=== PATIENT | female | born 1960 | race Caucasian/White ===

== ENCOUNTER 2017-07-21 17:21 | Emergency (ER) | payer BC ==
--- NOTE | 2017-07-21 17:34 | Emergency Department Record ---
History of Present Illness - General Stated Complaint: TOE INJURY Time Seen by Provider: 07/21/17 17:24 Source: Patient Mode of Arrival: Ambulatory Limitations: No limitations - History of Present Illness Initial Comments: 57 yo presents with a left great toe injury. She stubbed her toe about one week ago walking by her wood pile. She states the toe felt like it bent upward near the nail. The nail did not bleed and remained firmly intact. The toe is mildly swollen and red near the end. No pus, bleeding, or streaking. No history of DM or gout. No fevers. MD Complaint: Foot injury -: Week(s) (1) Injury: Toes: Left Type of Injury: Blunt Place: Home Severity: Moderate Improves With: Immobilization Worsens With: Movement, Palpation, Weight bearing Context: Direct blow Associated Symptoms: Swelling - Related Data Home Medications Medication Instructions Recorded Confirmed Last Taken Atorvastatin Calcium [Lipitor] 40 mg PO DAILY 07/21/17 07/21/17 07/20/17 Zolpidem Tartrate [Ambien] 10 mg PO QHS 07/21/17 07/21/17 07/20/17 Previous Rx's Medication Instructions Recorded Cephalexin [Keflex] 500 mg PO TID #21 cap 07/21/17 Hydrocodone/Acetaminophen [[place] 1 each PO Q8H #12 tablet 07/21/17 5-325 Tablet] Naproxen [Naprosyn] 500 mg PO BID #20 tablet 07/21/17 Allergies Allergy/AdvReac Type Severity Reaction Status Date / Time No Known Drug Allergies Allergy Verified 07/10/16 16:12 Review of Systems Constitutional: Denies: Chills, Fever, Malaise, Weakness Eyes: Denies: Eye discharge, Eye pain, Photophobia, Vision change ENT: Denies: Congestion, Throat pain Respiratory: Denies: Cough Cardiovascular: Denies: Chest pain, Palpitations, Syncope Endocrine: Denies: Fatigue Gastrointestinal: Denies: Abdominal pain, Diarrhea, Nausea, Vomiting Genitourinary: Denies: Dysuria, Urgency Musculoskeletal: Reports: As per HPI, Arthralgia Skin: Reports: As per HPI, Change in color, Rash Neurological: Denies: Headache, Numbness, Tingling, Vertigo, Weakness Psychiatric: Denies: Anxiety Hematological/Lymphatic: Denies: Blood Clots, Easy bleeding, Easy bruising, Swollen glands Past Medical History - SOCIAL HISTORY Smoking Status: Current every day smoker Drug Use: None - RESPIRATORY Hx Respiratory Disorders: No - CARDIOVASCULAR Hx Cardio Disorders: No Hx Hypertension: Yes - NEURO Hx Neuro Disorders: No - GI Hx GI Disorders: No - Hx Genitourinary Disorders: No - ENDOCRINE Hx Endocrine Disorders: No - MUSCULOSKELETAL Hx Musculoskeletal Disorders: No - PSYCH Hx Psych Problems: Yes Hx Anxiety: Yes Hx Depression: Yes - HEMATOLOGY/ONCOLOGY Hx Hematology/Oncology Disorders: No Family Medical History Hx Cancer: Mother Hx Diabetes: Mother Physical Exam - General General Appearance: Alert, Oriented x3, Cooperative, No acute distress Limitations: No limitations - Head Head exam: Atraumatic, Normocephalic, Normal inspection - Eye Eye exam: Normal appearance, PERRL. negative: Conjunctival injection, Periorbital swelling - ENT ENT exam: Normal exam. negative: Mucous membranes moist Ear exam: Normal external inspection Nasal Exam: Normal inspection Mouth exam: Normal external inspection - Neck Neck exam: Normal inspection - Cardiovascular Cardiovascular Exam: Regular rate, Normal rhythm, Normal heart sounds Peripheral Pulses: 2+: Dorsalis Pedis (L) - Rectal Rectal exam: Deferred - exam: Deferred - Extremities Extremities exam: Full ROM, Joint swelling, Normal capillary refill, Tenderness. negative: Normal inspection Image of Feet: 1 - mild redness and swelling of the left great toe, no fluctuance or signs of infection, no pus, the nail is firmly attached, no subungual hematoma, no streaking, the erythema is mostly isolated to the distal area - Neurological Neurological exam: Alert, Normal gait, Oriented X3 - Psychiatric Psychiatric exam: Normal affect, Normal mood - Skin Skin exam: Erythema Course - Reevaluation(s) Reevaluation #1: XR of the left great toe was ordered The toe has mild swelling and mild erythema without signs of pus or infection 07/21/17 17:36 Reevaluation #2: The XR was read as no acute process. Mild degenerative changes/ 07/21/17 18:34 Disposition Disposition: Discharge Clinical Impression: Cellulitis, toe Qualifiers: Laterality: left Qualified Code(s): L03.032 - Cellulitis of left toe Toe contusion Qualifiers: Encounter type: initial encounter Toe: lesser toe Damage to nail status: without damage Laterality: left Qualified Code(s): S90.122A - Contusion of left lesser toe(s) without damage to nail, initial encounter Disposition: Home, Self-Care Condition: (1) Good Instructions: Cellulitis (ED), Foot Contusion (ED) Additional Instructions: Keep elevated Clean daily with a warm soak Return if worse, fever, pus, swelling, pus or any new concerns Call your doctor for follow up in the next week Prescriptions: Cephalexin [Keflex] 500 mg PO TID #21 cap Hydrocodone/Acetaminophen [[place] 5-325 Tablet] 1 each PO Q8H #12 tablet Naproxen [Naprosyn] 500 mg PO BID #20 tablet Forms: Patient Portal Access Quality - Quality Measures Quality Measures: N/A - Blood Pressure Screening Does Patient Have Any of the Following: No Blood Pressure Classification: Pre-Hypertensive BP Reading Systolic Measurement: 121 Diastolic Measurement: 77 Screening for High Blood Pressure: < Pre-Hypertensive BP, F/U Documented > [ G8950] Pre-Hypertensive Follow-up Interventions: Referral to alternative/primary care provider.
--- NOTE | 2017-07-22 08:09 | RADIOLOGY REPORT ---
EXAM: LEFT GREAT TOE HISTORY: BEND LEFT GREAT TOENAIL BACK ONE WEEK AGO, STILL HAVING PAIN IN GREAT TOE. TECHNIQUE: Three views of the left great toe were obtained. Comparison: None. Encounter: Initial. FINDINGS: The great toe is partially obscured on the lateral by the other toes , but as visualized, no definite fracture or dislocation of the great toe evident. Mild degenerative arthritic at the first MTP joint. IMPRESSION: NO DEFINITE FRACTURE OF THE GREAT TOE IDENTIFIED. SOME DEGENERATIVE ARTHRITIS AT THE FIRST MTP JOINT. [facility]: [id number] [facility]
== END 2017-07-21 18:55 | disposition home or self-care (01) ==
LOC: ER 17:21
DX: S90.112A Contusion of left great toe without damage to nail, initial encounter (principal); L03.032 Cellulitis of left toe; W22.8XXA Striking against or struck by other objects, initial encounter; Y92.007 Garden or yard of unspecified non-institutional (private) residence as the place of occurrence of the external cause
CPT/HCPCS: 73660; 99283

== ENCOUNTER 2018-02-23 13:05 | Emergency (ER) | payer MEDICAID ==
--- NOTE | 2018-02-23 13:43 | Emergency Department Record ---
History of Present Illness - General Chief Complaint: Back Pain/Injury Stated Complaint: BACK PAIN Time Seen by Provider: 02/23/18 13:21 Source: Patient Mode of Arrival: Ambulatory Limitations: No limitations - History of Present Illness Initial Comments: The patient is here due to back pain for 4-5 days. She originally fell about 2 weeks ago backwards onto her buttocks and hit her head. She had no back pain but did have a LUCAS. The patient then did see her PCP last week and had an outpatient head CT done 6 days ago that was neg. Now for the last 4-5 days she has been having L lower back pain. The pain is worse with any movement or bending and basically gone when lying flat. There is no radiation of the pain down the legs and no leg numbness or weakness. The patient does state that she feels that her legs feel funny. She also has been mildly constipated and has had abdominal cramping. There has been no trouble urinating and no leg weakness. She did drive here to the ER today with no problems. MD Complaint: Back pain Onset/Timin -: Days(s) Similar Symptoms Previously: No Severity scale (1-10): 6 Quality: Aching Consistency: Constant Context: Unknown Associated Symptoms: Constipation, Other Treatments Prior to Arrival: Prescription analgesics - Related Data Home Medications Medication Instructions Recorded Confirmed Last Taken Lisinopril 10 mg PO DAILY 02/23/18 02/23/18 02/22/18 Previous Rx's Medication Instructions Recorded Hydrocodone/Acetaminophen [Nicholls 1 each PO Q8H #12 tablet 07/21/17 5-325 Tablet] Naproxen [Naprosyn] 500 mg PO BID #14 tablet. 02/23/18 Orphenadrine Citrate [Norflex] 100 mg PO Q12H PRN #15 tab 02/23/18 Allergies Allergy/AdvReac Type Severity Reaction Status Date / Time No Known Drug Allergies Allergy Verified 07/10/16 16:12 Travel Screening - Travel/Exposure Within Last 30 Days Have you traveled within the last 30 days?: No - Travel/Exposure Within Last Year Have you traveled outside the [place] in the last year?: No - Additonal Travel Details Have you been exposed to anyone with a communicable illness?: No - Travel Symptoms Symptom Screening: None Review of Systems Constitutional: Denies: Chills, Fever Eyes: Denies: Eye discharge ENT: Denies: Congestion Respiratory: Denies: Cough, Dyspnea Past Medical History - SOCIAL HISTORY Smoking Status: Current every day smoker Alcohol Use: None Drug Use: Occasional Drug Use Detail:: Marijuana - RESPIRATORY Hx Respiratory Disorders: No - CARDIOVASCULAR Hx Cardio Disorders: No Hx Hypertension: Yes - NEURO Hx Neuro Disorders: No - GI Hx GI Disorders: No - Hx Genitourinary Disorders: No - ENDOCRINE Hx Endocrine Disorders: No - MUSCULOSKELETAL Hx Musculoskeletal Disorders: No - PSYCH Hx Psych Problems: Yes Hx Anxiety: Yes Hx Depression: Yes - HEMATOLOGY/ONCOLOGY Hx Hematology/Oncology Disorders: No Family Medical History Any Significant Family History?: No Hx Cancer: Mother Hx Diabetes: Mother Physical Exam - General General Appearance: Alert, Oriented x3, Cooperative, No acute distress - Head Head exam: Atraumatic, Normocephalic, Normal inspection - Eye Eye exam: Normal appearance, PERRL - Neck Neck exam: Normal inspection, Full ROM. negative: Tenderness - Respiratory Respiratory exam: Normal lung sounds bilaterally. negative: Respiratory distress - Cardiovascular Cardiovascular Exam: Regular rate, Normal rhythm, Normal heart sounds - GI/Abdominal GI/Abdominal exam: Soft, Normal bowel sounds. negative: Distended, Guarding, Rebound, Rigid, Tenderness - Extremities Extremities exam: Normal inspection, Full ROM, Normal capillary refill, Other ( Neg SLR bilaterally.). negative: Tenderness Image of Full Body: 1 - Area of pain and tenderness. - Neurological Neurological exam: Alert, Normal gait, Oriented X3, Reflexes normal (The patella and achilles reflexes are 2+ and equal bilaterally.). negative: Abnormal gait, Altered, Motor sensory deficit Course Vital Signs 02/23/18 13:07 Temperature 98.6 F Pulse Rate 99 H Respiratory 18 Rate Blood Pressure 146/96 Pulse Ox 95 - Reevaluation(s) Reevaluation #1: The patient is doing better at this time. She denies any pain when lying flat and is only having the pain when moving, standing or twisting. She is up walking with only very minimal problems. I did discuss the results with the patient and the need to keep her appointment with Dr. Colmenares for the MRI. She is to return to the ER for any worsening symptoms. 02/23/18 14:49 02/23/18 14:53 Medical Decision Making - Data Complexity MDM Data: Labs Ordered and/or Reviewed, X-Ray Ordered and/or Reviewed - Lab Data Result diagrams: 02/23/18 13:45 02/23/18 13:45 - Radiology Data Radiology results: Report reviewed (LS Spine: Multilevel DDD, No acute changes.) Disposition Disposition: Discharge Clinical Impression: Low back pain Qualifiers: Chronicity: acute Back pain laterality: left Sciatica presence: without sciatica Qualified Code(s): M54.5 - Low back pain Disposition: Home, Self-Care Condition: (2) Stable Instructions: Low Back Strain (ED) Additional Instructions: Please continue your regular medicines and see your family doctor for recheck tomorrow. Take the Naprosyn and Norflex as directed. Please return to the ER for any worsening symptoms, increased pain, any weakness, or numbness or any incontinence of bowel or bladder. Prescriptions: Naproxen [Naprosyn] 500 mg PO BID #14 tablet. Orphenadrine Citrate [Norflex] 100 mg PO Q12H PRN #15 tab PRN Reason: Analgesia Forms: Patient Portal Access Time of Disposition: 14:53 Quality - Quality Measures Quality Measures: N/A - Blood Pressure Screening View Details: Yes Does Patient Have Any of the Following: No Blood Pressure Classification: Hypertensive Reading Systolic Measurement: 155 Diastolic Measurement: 95 Screening for High Blood Pressure: < First Hypertensive BP, F/U Documented > [ G8950] First Hypertensive Follow-up Interventions: Referral to alternative/primary care provider.
[2018-02-23] MEDS: KETOROLAC 30 MG/ML VIAL IM ONE (13:57)
[2018-02-23 14:01] LABS: BASO % 0.8 % (0-6); EOS % 2.4 % (0-6); GRAN % 59.6 % (47-80); HEMATOCRIT 44.7 % (35.0-47.0); HEMOGLOBIN 15.2 gm/dl (11.6-16.0); LYMPH % 29.1 % (16-45); MEAN CELL VOLUME 91.8 fl (81-97); MEAN CORPUSCULAR HEMOGLOBIN 31.2 pg (27-33); MEAN PLATELET VOLUME 9.1 fl (7.4-10.4); MONO % 8.1 % (0-9); PLATELET COUNT 305 K/uL (130-400); RED BLOOD COUNT 4.87 M/uL (3.80-5.40); RED CELL DISTRIBUTION WIDTH 12.2 % (11.5-14.5); WHITE BLOOD COUNT W/O DIFF 9.8 K/uL (4.2-12.2)
[2018-02-23 14:03] LABS: URINE APPEARANCE CLEAR; URINE BILIRUBIN NEGATIVE (NEGATIVE); URINE BLOOD SMALL (NEGATIVE); URINE COLOR YELLOW; URINE GLUCOSE (UA) NEGATIVE (NEGATIVE); URINE KETONE NEGATIVE (NEGATIVE); URINE LEUKOCYTE ESTERASE NEGATIVE (NEGATIVE); URINE NITRITE NEGATIVE (NEGATIVE); URINE PROTEIN NEGATIVE (NEGATIVE); URINE UROBILINOGEN 0.2 E.U./dL (0.20 - 1.00)
[2018-02-23 14:10] LABS: BLOOD UREA NITROGEN 13 mg/dL (6-20); CREATININE 0.7 mg/dL (0.5-0.9); EST GLOMERULAR FILTRATION RATE > 60 mL/min
[2018-02-23 14:12] LABS: URINE AMORPHOUS SEDIMENT 1+; URINE EPITHELIAL CELLS 0 - 2 (FEW); URINE WBC 0 - 2 (0-2/hpf)
[2018-02-23 14:13] LABS: GLUCOSE,RANDOM 115 mg/dL (74-109)
[2018-02-23 14:26] LABS: ALBUMIN 3.9 g/dL (4.0-5.0); ALKALINE PHOSPHATASE 75 U/L (35-104); ALT/SGPT 19 U/L (<33); AST/SGOT 18 U/L (10.0-35.0); LIPASE 44 U/L (13-60)
[2018-02-23 14:27] LABS: BILIRUBIN,DIRECT < 0.2 mg/dL (0-0.3)
--- NOTE | 2018-02-24 07:43 | RADIOLOGY REPORT ---
EXAM: LUMBAR SPINE HISTORY: BACK PAIN. TECHNIQUE: AP, lateral and oblique views of the lumbar spine were performed. FINDINGS: There is normal vertebral body height and alignment. No evidence of fracture. No spondylolysis or spondylolisthesis. There is mild disk space narrowing and spondylotic spurring at all levels. Mild scoliotic curvature. IMPRESSION: MILD MULTILEVEL DEGENERATIVE CHANGE. NO EVIDENCE OF FRACTURE, SPONDYLOLYSIS, OR SPONDYLOLISTHESIS. [facility]: [id number] [facility]
== END 2018-02-23 15:02 | disposition home or self-care (01) ==
LOC: ER 13:05
DX: M54.5 Low back pain (principal); I10 Essential (primary) hypertension; F17.210 Nicotine dependence, cigarettes, uncomplicated
CPT/HCPCS: 99283; 96372; 99284; 83690; 85025; 80076; 80048; 81001; 72110; J1885

== ENCOUNTER 2019-05-08 13:30 | Emergency (ER) | payer MEDICAID ==
--- NOTE | 2019-05-08 13:53 | Emergency Department Record ---
History of Present Illness - General Chief Complaint: Fall Injury Stated Complaint: FALL/TAILBONE PAIN Time Seen by Provider: 05/08/19 13:47 Source: Patient Mode of Arrival: Ambulatory Limitations: No limitations - History of Present Illness Initial Comments: 59 yo female presents after a fall 5 days ago in her bedroom. She landed on her tailbone. She reports pain ever since. It hurts to sit or lay on the area for prolonged periods of time. No weakness. She has been ambulatory without assistance but has some pain. She also has a pain behind the right shoulder. No mid line tenderness of the neck. She is able to move the arm and neck freely. NO other pain or injuries. MD Complaint: Fall -: Days(s) (5) When Fall Occurred: # Days [employer] (5) Fall Witnessed: No Place Fall Occurred: Home Loss of Consciousness: None Prolonged Down Time?: No Symptoms Prior to Fall: None Location: Back Location - Extremities: Right: Shoulder Severity: Moderate Quality: Aching Context: Tripped/slipped Associated Symptoms: Denies - Carbon Coma Scale Eye Response: (4) Open spontaneously Motor Response: (6) Obeys commands Verbal Response: (5) Oriented Otoniel Total: 15 - Related Data Previous Rx's Medication Instructions Recorded Hydrocodone/Acetaminophen [Dahlgren 1 tab PO Q6H PRN #12 tab 05/08/19 5mg/325mg] Allergies Allergy/AdvReac Type Severity Reaction Status Date / Time No Known Drug Allergies Allergy Verified 07/10/16 16:12 Review of Systems Constitutional: Denies: Chills, Fever, Malaise, Weakness Eyes: Denies: Eye discharge ENT: Denies: Congestion, Throat pain Respiratory: Denies: Cough, Dyspnea Cardiovascular: Denies: Chest pain, Palpitations, Syncope Endocrine: Denies: Fatigue Gastrointestinal: Denies: Abdominal pain, Diarrhea, Nausea, Vomiting Genitourinary: Denies: Dysuria, Urgency Musculoskeletal: Reports: Arthralgia, Back pain, Myalgia Skin: Denies: Bruising, Change in color, Rash Neurological: Denies: Headache Psychiatric: Denies: Anxiety Hematological/Lymphatic: Denies: Easy bleeding, Easy bruising Past Medical History - SOCIAL HISTORY Smoking Status: Current every day smoker Drug Use: Occasional Drug Use Detail:: Marijuana - RESPIRATORY Hx Respiratory Disorders: No - CARDIOVASCULAR Hx Cardio Disorders: No Hx Hypertension: Yes - NEURO Hx Neuro Disorders: No - GI Hx GI Disorders: No - Hx Genitourinary Disorders: No - ENDOCRINE Hx Endocrine Disorders: No - MUSCULOSKELETAL Hx Musculoskeletal Disorders: No - PSYCH Hx Psych Problems: Yes Hx Anxiety: Yes Hx Depression: Yes - HEMATOLOGY/ONCOLOGY Hx Hematology/Oncology Disorders: No Family Medical History Hx Cancer: Mother Hx Diabetes: Mother Physical Exam - General General Appearance: Alert, Oriented x3, Cooperative, No acute distress Limitations: No limitations - Head Head exam: Atraumatic, Normocephalic, Normal inspection - Eye Eye exam: Normal appearance, PERRL. negative: Conjunctival injection, Scleral icterus - ENT ENT exam: Normal exam, Mucous membranes moist Ear exam: Normal external inspection Nasal Exam: Normal inspection Mouth exam: Normal external inspection - Neck Neck exam: Normal inspection, Full ROM, Other (No cervical mid line tenderness or paraspinal tenderness). negative: Tenderness - Respiratory Respiratory exam: Normal lung sounds bilaterally. negative: Chest wall tenderness, Rhonchi, Stridor, Wheezes - Cardiovascular Cardiovascular Exam: Regular rate, Normal rhythm, Normal heart sounds - GI/Abdominal GI/Abdominal exam: Soft. negative: Tenderness - Rectal Rectal exam: Deferred - exam: Deferred - Extremities Extremities exam: Normal inspection, Full ROM, Tenderness. negative: Calf tenderness, Joint swelling, Normal capillary refill, Pedal edema Image of Full Body: 1 - tenderness, normal inspection, intact skin 2 - tenderness, normal inspection, full ROM, NO neck bony tenderness - Neurological Neurological exam: Alert, Normal gait, Oriented X3. negative: Abnormal gait, Altered, Motor sensory deficit - Psychiatric Psychiatric exam: Normal affect, Normal mood. negative: Agitated, Anxious - Skin Skin exam: Dry, Intact, Normal color, Warm Course - Reevaluation(s) Reevaluation #1: 05/08/19 14:43 The shoulder XR is negative The Sacrum and Coccyx XR was read as one view demonstrating a possible questionable acute non displaced fracture of the S4-5 anterior junction. The patient was informed of the results The treatment at this time is supportive with pain control We discussed close follow up of the injury with her PCP. If symptoms continue she may need an outpatient follow up imaging with CT 05/08/19 15:04 The patient was prescribed a controlled substance. The prescription does not exceed three days. MAPS was reviewed at the time of the prescripts The topics of abuse, addiction, over dose, dangers of multiple medications, disposal, and illegal distribution were discussed with the patient. The patient verbalized understanding of the risks of the medication being provided Disposition Disposition: Discharge Clinical Impression: Sacral contusion Qualifiers: Encounter type: initial encounter Qualified Code(s): S30.0XXA - Contusion of lower back and pelvis, initial encounter Disposition: Home, Self-Care Condition: (1) Good Instructions: Sacral Fracture (ED) Additional Instructions: Call your doctor for the next available follow up appointment. If your pain continues you may need a follow up CT scan to further evaluate the area injured Review this ER visit and the tests performed with your family doctor Return to the ER for a recheck if worse, any new concerns or questions Prescriptions: Hydrocodone/Acetaminophen [Dahlgren 5mg/325mg] 1 tab PO Q6H PRN #12 tab PRN Reason: Pain - General Forms: Patient Portal Access Time of Disposition: 14:49 Quality - Quality Measures Quality Measures: N/A - Blood Pressure Screening Does Patient Have Any of the Following: No Blood Pressure Classification: Pre-Hypertensive BP Reading Systolic Measurement: 130 Diastolic Measurement: 83 Screening for High Blood Pressure: < Pre-Hypertensive BP, F/U Documented > [G8950] Pre-Hypertensive Follow-up Interventions: Referral to alternative/primary care provider.
== END 2019-05-08 15:13 | disposition home or self-care (01) ==
LOC: ER 13:30
DX: S30.0XXA Contusion of lower back and pelvis, initial encounter (principal); M25.511 Pain in right shoulder; W01.10XA Fall on same level from slipping, tripping and stumbling with subsequent striking against unspecified object, initial encounter; Y92.003 Bedroom of unspecified non-institutional (private) residence as the place of occurrence of the external cause; I10 Essential (primary) hypertension; F17.210 Nicotine dependence, cigarettes, uncomplicated
CPT/HCPCS: 72220; 99283; 99284

== ENCOUNTER 2019-08-17 02:17 | Emergency (ER) | payer MEDICAID ==
[2019-08-17 02:52] LABS: ABSOLUTE NEUTROPHIL COUNT 7.48; BASO % 0.7 % (0-6); EOS % 2.5 % (0-6); GRAN % 54.3 % (47-80); HEMOGLOBIN 14.9 gm/dl (11.6-16.0); LYMPH % 32.3 % (16-45); MEAN CELL VOLUME 92.2 fl (81-97); MEAN CORPUSCULAR HEMOGLOBIN 30.5 pg (27-33); MEAN CORPUSCULAR HGB CONC 33.1 g/dl (32-36); MEAN PLATELET VOLUME 9.1 fl (7.4-10.4); MONO % 10.2 % (0-9); PLATELET COUNT 354 K/uL (130-400); RED BLOOD COUNT 4.88 M/uL (3.80-5.40); RED CELL DISTRIBUTION WIDTH 12.9 % (11.5-14.5); WHITE BLOOD COUNT W/O DIFF 13.8 K/uL (4.2-12.2)
[2019-08-17 02:59] LABS: BLOOD UREA NITROGEN 15 mg/dL (8-23); EST GLOMERULAR FILTRATION RATE > 60 mL/min
[2019-08-17 03:02] LABS: GLUCOSE,RANDOM 159 mg/dL (74-109)
--- NOTE | 2019-08-17 03:10 | Emergency Department Record ---
History of Present Illness - General Chief Complaint: Chest Pain Stated Complaint: CHEST PRESSURE Time Seen by Provider: 08/17/19 02:35 Source: Patient Mode of Arrival: Ambulatory Limitations: No limitations - History of Present Illness Initial Comments: pt came in c/o chest pressure and rapid heart rate. she had a very stressful day with her parents' estate being auctioned off. she drinks 3c coffee and a 2ltr of mountain dew a day. she has never had anything like this before. it started 4hrs waiter/waitress captain Complaint: Chest pain Onset: Awoke with symptoms Pain Location: Substernal Pain Radiation: None Severity: Mild Quality: Other Consistency: Constant Improves With: Rest Worsens With: Exertion Context: Other Treatments Prior to Arrival: Other Treatment Prior to Arrival Comment:: xanax - Related Data Home Medications Medication Instructions Recorded Confirmed Last Taken Alprazolam [Xanax] 0.25 mg PO ASDIR PRN 08/17/19 08/17/19 08/17/19 Allergies Allergy/AdvReac Type Severity Reaction Status Date / Time No Known Drug Allergies Allergy Unverified 07/23/19 15:19 Travel Screening - Travel/Exposure Within Last 30 Days Have you traveled within the last 30 days?: No - Travel Symptoms Symptom Screening: None Review of Systems Reviewed: No additional complaints except as noted below Constitutional: Reports: As per HPI. Denies: Chills, Fever, Malaise, Night sweats, Weakness, Weight change Eyes: Reports: As per HPI. Denies: Eye discharge, Eye pain, Photophobia, Vision change ENT: Reports: As per HPI. Denies: Congestion, Dental pain, Ear pain, Epistaxis, Hearing loss, Throat pain Respiratory: Reports: As per HPI. Denies: Cough, Dyspnea, Hemoptysis, Stridor, Wheezes Cardiovascular: Reports: As per HPI, Chest pain. Denies: Arrhythmia, Dyspnea on exertion, Edema, Murmurs, Orthopnea, Palpitations, Paroxysmal nocturnal dyspnea, Rheumatic Fever, Syncope Endocrine: Reports: As per HPI. Denies: Fatigue, Heat or cold intolerance, Polydipsia, Polyuria Gastrointestinal: Reports: As per HPI. Denies: Abdominal pain, Constipation, Diarrhea, Hematemesis, Hematochezia, Melena, Nausea, Vomiting Genitourinary: Reports: As per HPI. Denies: Abnormal menses, Discharge, Dyspareunia, Dysuria, Frequency, Hematuria, Incontinence, Retention, Urgency Musculoskeletal: Reports: As per HPI. Denies: Arthralgia, Back pain, Gout, Joint swelling, Myalgia, Neck pain Skin: Reports: As per HPI. Denies: Bruising, Change in color, Change in hair/nails, Lesions, Pruritus, Rash Neurological: Reports: As per HPI. Denies: Abnormal gait, Confusion, Headache, Numbness, Paresthesias, Seizure, Tingling, Tremors, Vertigo, Weakness Psychiatric: Reports: As per HPI. Denies: Anxiety, Auditory hallucinations, Depression, Homicidal thoughts, Suicidal thoughts, Visual hallucinations Hematological/Lymphatic: Reports: As per HPI. Denies: Anemia, Blood Clots, Easy bleeding, Easy bruising, Swollen glands Past Medical History - SOCIAL HISTORY Smoking Status: Current every day smoker Alcohol Use: Rare Drug Use: None - RESPIRATORY Hx Respiratory Disorders: No - CARDIOVASCULAR Hx Cardio Disorders: Yes Hx Hypertension: Yes - NEURO Hx Neuro Disorders: No - GI Hx GI Disorders: No - Hx Genitourinary Disorders: No - ENDOCRINE Hx Endocrine Disorders: No - MUSCULOSKELETAL Hx Musculoskeletal Disorders: No - PSYCH Hx Psych Problems: Yes Hx Anxiety: Yes Hx Depression: Yes - HEMATOLOGY/ONCOLOGY Hx Hematology/Oncology Disorders: No Family Medical History Any Significant Family History?: Yes Hx Cancer: Mother Hx Diabetes: Mother Physical Exam - General General Appearance: Alert, Oriented x3, Cooperative, Mild distress - Head Head exam: Normal inspection - Eye Eye exam: Normal appearance, PERRL, EOMI Pupils: Normal accommodation - ENT ENT exam: Normal exam, Mucous membranes moist, Normal external ear exam, Normal orophraynx Ear exam: Normal external inspection. negative: External canal tenderness Nasal Exam: Normal inspection. negative: Discharge, Sinus tenderness Mouth exam: Normal external inspection, Tongue normal Teeth exam: Normal inspection. negative: Dental caries Throat exam: Normal inspection. negative: Tonsillar erythema, Tonsillar exudate - Neck Neck exam: Normal inspection, Full ROM. negative: Tenderness - Respiratory Respiratory exam: Normal lung sounds bilaterally. negative: Respiratory distress - Cardiovascular Cardiovascular Exam: Normal rhythm, Normal heart sounds, Tachycardia - GI/Abdominal GI/Abdominal exam: Soft, Normal bowel sounds. negative: Tenderness - Rectal Rectal exam: Deferred - exam: Deferred - Extremities Extremities exam: Normal inspection, Full ROM, Normal capillary refill. negative: Tenderness - Back Back exam: Reports: Normal inspection, Full ROM. 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 she did well afterward w no further cp. she's had 2 neg troponins 08/17/19 06:48 Medical Decision Making - Lab Data Result diagrams: 08/17/19 02:30 08/17/19 02:30 Lab Results 08/17/19 Range/Units 02:30 WBC 13.8 H (4.2-12.2) K/uL RBC 4.88 (3.80-5.40) M/uL Hgb 14.9 (11.6-16.0) gm/dl Hct 45.0 (35.0-47.0) % MCV 92.2 (81-97) fl MCH 30.5 (27-33) pg MCHC 33.1 (32-36) g/dl RDW 12.9 (11.5-14.5) % Plt Count 354 (130-400) K/uL MPV 9.1 (7.4-10.4) fl Gran % 54.3 (47-80) % Lymphocytes % 32.3 (16-45) % Monocytes % 10.2 H (0-9) % Eosinophils % 2.5 (0-6) % Basophils % 0.7 (0-6) % Absolute Neutrophils 7.48 Disposition Disposition: Discharge Clinical Impression: SVT (supraventricular tachycardia) Disposition: Home, Self-Care Condition: (1) Good Instructions: Supraventricular Tachycardia (ED), Valsalva Maneuver (ED) Additional Instructions: follow up with family doctor and with bindery operator. return sooner if worse. decrease caffeine. rest Forms: Patient Portal Access Quality - Quality Measures Quality Measures: N/A - Blood Pressure Screening Does Patient Have Any of the Following: No Blood Pressure Classification: Pre-Hypertensive BP Reading Systolic Measurement: 121 Diastolic Measurement: 82 Screening for High Blood Pressure: < Pre-Hypertensive BP, F/U Documented > [G8950] Pre-Hypertensive Follow-up Interventions: Follow-up with rescreen every year.
[2019-08-17 03:15] LABS: THYROID STIMULATING HORMONE 4.58 uIU/mL (0.270-4.20)
--- NOTE | 2019-08-17 03:48 | RADIOLOGY REPORT ---
EXAMINATION: Two View Chest Radiographs EXAM DATE: 08/17/2019 3:41 AM TECHNIQUE: Frontal and lateral views INDICATION: Chest pain COMPARISON: 07/10/2016 ENCOUNTER: Not applicable FINDINGS: The heart is normal in size and contour. The mediastinal contours are normal. The lungs are free of infiltrate. There is no pneumothorax or pleural effusion. The pulmonary vascularity is normal. Sm all stable area of sclerosis in the left humeral head is presumed benign. IMPRESSION: No acute cardiopulmonary disease is present. Dictated by: Trino Acuña DO on 08/17/2019 3:42 AM. .
== END 2019-08-17 07:06 | disposition home or self-care (01) ==
LOC: ER 02:17
DX: I47.1 Supraventricular tachycardia (principal); I10 Essential (primary) hypertension; F17.210 Nicotine dependence, cigarettes, uncomplicated
CPT/HCPCS: 71046; 80048; 84436; 84443; 84484; 85025; 93005; 93010; 99284